=== PATIENT | male | born 1955 | race Caucasian/White ===

== ENCOUNTER 2017-07-30 12:52 | Emergency (ER) | payer OTHER, MEDICAID ==
[2010-04-27 07:32] VITALS: BMI 26.9
== END 2017-07-30 14:13 | disposition home or self-care (01) ==
LOC: D.ER 12:52
DX: H92.01 Otalgia, right ear (principal); H66.91 Otitis media, unspecified, right ear; Z76.0 Encounter for issue of repeat prescription; I10 Essential (primary) hypertension; F17.200 Nicotine dependence, unspecified, uncomplicated

== ENCOUNTER → 2017-10-25 11:55 | Outpatient (CLI) | payer OTHER, MEDICAID ==
[2010-04-27 07:32] VITALS: BMI 26.9
[2017-10-25 13:11] LABS: BILIRUBIN - DIRECT 0.12 mg/dL (0.00-0.30); BILIRUBIN - INDIRECT 0.25 mg/dL (0.00-1.00); BILIRUBIN - TOTAL 0.37 mg/dL (0.2-1.3); PROTEIN - SERUM 7.6 g/dL (6.4-8.2)
[2017-10-26 13:19] LABS: HEPATITIS C ANTIBODY >11.0 (0.0-0.9)
[2017-10-29 03:11] LABS: HCVGENO - HEP C QUANT 267000 IU/mL (()); HCVGENO - LOG 10 5.427 (())
== END | disposition home or self-care (01) ==
LOC: D.LAB 11:55
PROVIDERS: Family Medicine
DX: B18.2 Chronic viral hepatitis C (principal)

== ENCOUNTER 2018-08-30 05:49 | Emergency (ER) | payer OTHER, MEDICAID ==
[~2018-08-30] VITALS: Ht 180.3 cm; Wt 75.0 kg
[2018-08-30 05:52] VITALS: Ht 180.3 cm; Wt 75.0 kg
[2018-08-30] MEDS ORDERED: ADVAIR HFA [SP]12 GM INH (05:53)
[2018-08-30] MEDS ORDERED: ALBUTEROL SULF8.5 GM INH (05:53)
[2018-08-30 06:51] LABS: BASOPHILS 0.8 % (0-2); EOSINOPHILS 6.8 % (0-7); HEMATOCRIT 44.6 % (42.0-54.0); HEMOGLOBIN 14.9 g/dL (13.5-17.5); IMMATURE GRANULOCYTES 0.1 % (0-5); LYMPHOCYTES 36.1 % (15-50); MCH 30.8 pg (26.0-34.0); MCHC 33.4 g/dL (31.0-37.0); MCV 92.3 fL (80.0-100.0); NEUTROPHILS 46.2 % (40-80); PLATELET COUNT 263 10x3/uL (130-400); RBC 4.83 10x6/uL (4.20-6.10); RDW 13.3 % (11.5-14.5); WBC 8.9 10x3/uL (4.8-10.8)
[2018-08-30 07:11] LABS: ALBUMIN 3.7 g/dL (3.4-5.0); ALKALINE PHOSPHATASE 103 U/L (46-116); ALT (SGPT) 69 U/L (10-68); BILIRUBIN - TOTAL 0.24 mg/dL (0.2-1.3); CALC OSMOLALITY 280 mosm/kg (275-300); CALCIUM 8.8 mg/dL (8.5-10.1); CARBON DIOXIDE 30.7 mmol/L (21.0-32.0); CHLORIDE - SERUM 104 mmol/L (98-107); CREATININE - SERUM 1.2 mg/dL (0.6-1.3); GLUCOSE 91 mg/dL (74-106); POTASSIUM - SERUM 4.5 mmol/L (3.5-5.1); PROTEIN - SERUM 7.3 g/dL (6.4-8.2); SODIUM 140 mmol/L (136-145); UREA NITROGEN 17 mg/dL (7-18); eGFR NON AFRICAN AMERICAN 65 mL/min (90-120)
[2018-08-30 07:14] LABS: APTT 31.9 SECONDS (22.8-39.4); INR 0.99 (0.85-1.17); PROTIME 12.6 SECONDS (11.6-15.0)
[2018-08-30 07:16] LABS: D-DIMER-QUANTITATIVE 0.46 ug/mLFEU (0.20-0.54)
[2018-08-30 07:23] LABS: CKMB 1.7 U/L (0.0-3.6); CREATINE KINASE 164 UL (21-232); PRO BNP 104 pg/mL (0-125)
[2018-08-30 07:25] LABS: TROPONIN-I < 0.017 ng/mL (0.000-0.060)
[2018-08-30] MEDS ORDERED: VOLTAREN100 GM TOPICAL (07:38)
[2018-08-30] MEDS ORDERED: VOLTAREN75 MG PO (07:38)
[2018-08-30] MEDS ORDERED: KEFLEX500 MG PO (07:39)
[2018-08-30 08:45] VITALS: BP 139/78
== END 2018-08-30 08:46 | disposition home or self-care (01) ==
LOC: D.ER 05:49
PROVIDERS: Family Medicine
DX: R07.89 Other chest pain (principal); F17.200 Nicotine dependence, unspecified, uncomplicated; J43.9 Emphysema, unspecified; I10 Essential (primary) hypertension

== ENCOUNTER 2019-02-20 14:52 | Emergency (ER) | payer OTHER ==
[~2019-02-20] VITALS: Ht 180.3 cm; Wt 77.7 kg
[~2019-02-20 14:52] MED LIST: ADVAIR HFA [SP]12 GM INH; ALBUTEROL SULF8.5 GM INH; KEFLEX500 MG PO; VOLTAREN100 GM TOPICAL; VOLTAREN75 MG PO
[2019-02-20 14:58] VITALS: Ht 180.3 cm; Wt 77.7 kg
[2019-02-20 15:30] LABS: BASOPHILS 0.9 % (0-2); EOSINOPHILS 8.6 % (0-7); HEMATOCRIT 41.4 % (42.0-54.0); HEMOGLOBIN 14.4 g/dL (13.5-17.5); IMMATURE GRANULOCYTES 0.2 % (0-5); LYMPHOCYTES 23.6 % (15-50); MCH 30.8 pg (26.0-34.0); MCHC 34.8 g/dL (31.0-37.0); MCV 88.5 fL (80.0-100.0); MEAN PLATELET VOLUME 10.8 fL (7.4-10.4); MONOCYTES 6.5 % (2-11); NEUTROPHILS 60.2 % (40-80); PLATELET COUNT 248 10x3/uL (130-400); RBC 4.68 10x6/uL (4.20-6.10); RDW 12.9 % (11.5-14.5); WBC 10.6 10x3/uL (4.8-10.8)
[2019-02-20 15:44] LABS: APTT 28.3 SECONDS (22.8-39.4); INR 1.09 (0.85-1.17); PROTIME 13.6 SECONDS (11.6-15.0)
[2019-02-20 15:55] LABS: ALBUMIN 3.4 g/dL (3.4-5.0); ALKALINE PHOSPHATASE 105 U/L (46-116); ALT (SGPT) 101 U/L (10-68); BILIRUBIN - TOTAL 0.49 mg/dL (0.2-1.3); CALC OSMOLALITY 286 mosm/kg (275-300); CARBON DIOXIDE 26.7 mmol/L (21.0-32.0); CHLORIDE - SERUM 107 mmol/L (98-107); CREATININE - SERUM 1.1 mg/dL (0.6-1.3); POTASSIUM - SERUM 4.6 mmol/L (3.5-5.1); PROTEIN - SERUM 6.7 g/dL (6.4-8.2); SODIUM 142 mmol/L (136-145); UREA NITROGEN 16 mg/dL (7-18); eGFR NON AFRICAN AMERICAN 71 mL/min (90-120)
[2019-02-20 15:58] LABS: GLUCOSE 145 mg/dL (74-106)
[2019-02-20 16:11] LABS: CKMB 3.5 U/L (0.0-3.6); CREATINE KINASE 185 UL (21-232); PRO BNP 148 pg/mL (0-125)
[2019-02-20 16:12] LABS: TROPONIN-I < 0.017 ng/mL (0.000-0.060)
[2019-02-20] MEDS ORDERED: ATARAX 25 MG TA25 MG PO (16:47)
[2019-02-20] MEDS ORDERED: AMOXICILLIN500 M1 PO (16:47)
[2019-02-20] MEDS ORDERED: PREDNISONE20 MG PO (16:47)
[2019-02-20 18:49] VITALS: BP 143/81
== END 2019-02-20 18:50 | disposition home or self-care (01) ==
LOC: D.ER 14:52
PROVIDERS: Family Medicine
DX: J44.9 Chronic obstructive pulmonary disease, unspecified (principal); F41.9 Anxiety disorder, unspecified; I10 Essential (primary) hypertension; F17.200 Nicotine dependence, unspecified, uncomplicated

== ENCOUNTER 2019-04-03 13:33 | Inpatient (IN) | payer OTHER ==
[~2019-04-03] VITALS: Ht 180.3 cm; Wt 84.1 kg
[~2019-04-03 13:33] MED LIST changes: +AMOXICILLIN500 M1 PO; +ATARAX 25 MG TA25 MG PO; +PREDNISONE20 MG PO
[2019-04-03] MEDS ORDERED: TIROSINT100 MCG PO (13:37)
[2019-04-03 14:09] LABS: HEMATOCRIT 45.3 % (42.0-54.0); HEMOGLOBIN 15.2 g/dL (13.5-17.5); MCH 31.3 pg (26.0-34.0); MCHC 33.6 g/dL (31.0-37.0); MCV 93.2 fL (80.0-100.0); MEAN PLATELET VOLUME 10.5 fL (7.4-10.4); PLATELET COUNT 365 10x3/uL (130-400); RBC 4.86 10x6/uL (4.20-6.10); RDW 13.6 % (11.5-14.5)
[2019-04-03 14:13] LABS: CALC OSMOLALITY 277 mosm/kg (275-300); CALCIUM 8.9 mg/dL (8.5-10.1); CARBON DIOXIDE 28.5 mmol/L (21.0-32.0); CHLORIDE - SERUM 103 mmol/L (98-107); CREATININE - SERUM 1.2 mg/dL (0.6-1.3); GLUCOSE 114 mg/dL (74-106); POTASSIUM - SERUM 4.6 mmol/L (3.5-5.1); SODIUM 138 mmol/L (136-145); UREA NITROGEN 15 mg/dL (7-18); eGFR NON AFRICAN AMERICAN 65 mL/min (90-120)
[2019-04-03 14:23] LABS: APTT 31.5 SECONDS (22.8-39.4); INR 1.05 (0.85-1.17); PROTIME 13.2 SECONDS (11.6-15.0)
[2019-04-03 14:29] LABS: ALBUMIN 3.7 g/dL (3.4-5.0); ALKALINE PHOSPHATASE 92 U/L (46-116); ALT (SGPT) 42 U/L (10-68); BILIRUBIN - TOTAL 0.55 mg/dL (0.2-1.3); CREATINE KINASE 115 UL (21-232); PRO BNP 453 pg/mL (0-125); PROTEIN - SERUM 7.5 g/dL (6.4-8.2); TROPONIN-I < 0.017 ng/mL (0.000-0.060)
[2019-04-03 14:32] LABS: EOSINOPHILS 1 % (0-7); LYMPHOCYTES 8 % (15-50); MONOCYTES 2 % (2-11); NEUTROPHILS 88 % (40-80); PLATELET ESTIMATE NORMAL
--- NOTE | 2019-04-03 15:00 | NUR ---
PT OBSERVED LYING IN BED, RESPIRATIONS EVEN AND UNLABORED ON RA. CALL LIGHT IN REACH. PT RESTING WITH EYES CLOSED. WILL CONTINUE TO MONITOR.
[2019-04-03 15:25] VITALS: BP 152/85
[2019-04-03 18:23] VITALS: BP 152/85; BMI 25.8
--- NOTE | 2019-04-03 19:30 | NUR ---
AWAKE AND ALERT REQUESTING FOOD AND IT WAS PROVIDED SKIN WARM AND DRY BED LOW AND LOCKED WITH CALL LIGHT IN PLACE
[2019-04-03 20:00] VITALS: BP 153/83
[2019-04-03 21:14] LABS: APPEARANCE CLEAR (CLEAR); BILIRUBIN NEGATIVE (NEGATIVE); COLOR YELLOW (YELLOW); GLUCOSE NEGATIVE (NEGATIVE); KETONE NEGATIVE (NEGATIVE); NITRITE NEGATIVE (NEGATIVE); PROTEIN NEGATIVE (NEGATIVE); SPECIFIC GRAVITY 1.015 (1.005-1.020); UROBILINOGEN NORMAL (NORMAL)
[2019-04-04] VITALS: BP 150/80
[2019-04-04 04:00] VITALS: BP 156/80
[2019-04-04 05:47] LABS: BASOPHILS 0 % (0-2); EOSINOPHILS 0 % (0-7); HEMATOCRIT 45.1 % (42.0-54.0); HEMOGLOBIN 15.1 g/dL (13.5-17.5); IMMATURE GRANULOCYTES 0.4 % (0-5); LYMPHOCYTES 3.1 % (15-50); MCHC 33.5 g/dL (31.0-37.0); MCV 92.6 fL (80.0-100.0); MEAN PLATELET VOLUME 10.9 fL (7.4-10.4); MONOCYTES 0.5 % (2-11); PLATELET COUNT 376 10x3/uL (130-400); RBC 4.87 10x6/uL (4.20-6.10); RDW 13.8 % (11.5-14.5); WBC 21.5 10x3/uL (4.8-10.8)
[2019-04-04 05:56] LABS: ALBUMIN 3.4 g/dL (3.4-5.0); ANION GAP 12.5 mmol/L (8-16); BILIRUBIN - TOTAL 0.36 mg/dL (0.2-1.3); CALCIUM 8.8 mg/dL (8.5-10.1); CREATININE - SERUM 1.2 mg/dL (0.6-1.3); MAGNESIUM - SERUM 1.9 mg/dL (1.8-2.4); PHOSPHOROUS 2.2 mg/dL (2.5-4.9); POTASSIUM - SERUM 4.5 mmol/L (3.5-5.1); PROTEIN - SERUM 7.3 g/dL (6.4-8.2)
[2019-04-04 09:00] VITALS: BP 143/81
--- NOTE | 2019-04-04 10:31 | NUR ---
PATIENT IS SITTING UP IN BED. HE IS FULLY DRESSED AND TOOK A SHOWER THIS MORNING. HE IS SWEATING, AND SAYS THAT HE HAS BEEN VERY SHORT OF BREATH. DENIES ANY NEEDS AT THIS TIME.
[2019-04-04 13:01] VITALS: BP 159/80
[2019-04-04 13:46] VITALS: Ht 180.3 cm; Wt 84.1 kg
--- NOTE | 2019-04-04 19:05 | NUR ---
EVENING ROUNDS COMPLETE. PT SITTING UP ON SIDE OF BED. NO SIGNS OF DISTRESS. AAOX4. PT DENIES ANY PAIN OR NEEDS AT THIS TIME. CL IN REACH, BED IN LOWEST POSITION.
[2019-04-04 20:00] VITALS: BP 143/67
[2019-04-05] VITALS (7 sets, daily range): BP systolic 132–166; BP diastolic 64–90
[2019-04-05 04:34] LABS: HEMATOCRIT 40.3 % (42.0-54.0); HEMOGLOBIN 13.4 g/dL (13.5-17.5); MCH 30.6 pg (26.0-34.0); MCHC 33.3 g/dL (31.0-37.0); MEAN PLATELET VOLUME 10.8 fL (7.4-10.4); PLATELET COUNT 382 10x3/uL (130-400); RBC 4.38 10x6/uL (4.20-6.10); WBC 23.9 10x3/uL (4.8-10.8)
[2019-04-05 04:49] LABS: ANION GAP 13.1 mmol/L (8-16); CALCIUM 8.4 mg/dL (8.5-10.1); CREATININE - SERUM 1.3 mg/dL (0.6-1.3); POTASSIUM - SERUM 4.1 mmol/L (3.5-5.1)
[2019-04-05 05:08] LABS: PHOSPHOROUS 3.2 mg/dL (2.5-4.9)
[2019-04-05 05:42] LABS: LYMPHOCYTES 5 % (15-50); MONOCYTES 1 % (2-11); NEUTROPHILS 94 % (40-80); PLATELET ESTIMATE NORMAL
--- NOTE | 2019-04-05 17:24 | MORECARE ---
CASE MANAGEMENT DISCHARGE SUMMARY PATIENT: CALIXTO JAMES UNIT: [id number] ADM DATE: 04/03/19 AGE: 63 : 53 SEX: M ROOM/BED: D.2135 AUTHOR: EMELIA,DOC PHYSICIAN: REFERRING PHYSICIAN: MARKEL MARSHALL MD DATE OF SERVICE: 04/05/19 Discharge Plan Patient Name: CALIXTO JAMES Facility: [facility]:[place] : 1955 Planned Disposition: Home Anticipated Discharge Date: 04/06/19 Discharge Date: Expected LOS: 3 Initial Reviewer: [email or web address] Initial Review Date: 04/05/2019 Generated: 04/05/19 6:24 pm Comments DCP- Discharge Planning Updated by [id number]: Bryan James on 04/05/19 4:[address] Patient Name: CALIXTO JAMES Admission Status: ER Accout number: [id number] Admission Date: 04-03-2019 : 1955 Admission Diagnosis: Attending: JOANNA, Current LOS: 2 Anticipated DC Date: 04-06-2019 Planned Disposition: Home Primary Insurance: [place] Discharge Planning Comments: CM MET WITH PT IN ROOM TO DISCUSS DISCHARGE PLANNING AND NEEDS. PT REPORTS LIVING AT HOME INDEPENDENTLY WITH A FRIEND WHERE PT IS SLEEPING ON A COUCH.. PT HAS NEBULIZER FOR CRIME ANALYST AT [facility]. PT HAS NO OUTSIDE SERVICES ASSISTING IN THE HOME. CM DISCUSSED AVAILABILITY OF HOME HEALTH, REHAB SERVICES AND MEDICAL EQUIPMENT. PT DENIES DISCHARGE NEEDS, REPORTS A FRIEND WILL PICK HIM UP FOR DISCHARGE HOME. PT PLANS TO DISCHARGE TO FRIENDS HOUSE, HAS NO ANTICIPATED DISCHARGE NEEDS, FRIEND TO CRIME ANALYST AT DISCHARGE. CM TO FOLLOW AND ASSIST IF NEEDED. Account Engineer: Bryan James DCPIA - Discharge Planning Initial Assessment Updated by [id number]: Bryan James on 04/05/19 5:20 pm * Is the patient Alert and Oriented? Yes * How many steps to enter\exit or inside your home? NONE * PCP DR. JOHNSON * Pharmacy [facility] [place] * Preadmission Environment Home with Family * ADLs Independent * Equipment Nebulizer * Other Equipment [facility] - PATIENT HAS NOT YET PICKED UP NEBULIZER FROM [facility] * List name and contact numbers for known caregivers / representatives who currently or will assist patient after discharge: EMMA BRADLEY, GIRLFRIEND, * Verbal permission to speak to the caregivers and representatives has been obtained from the patient. N/A * Community resources currently utilized None * Please name any agencies selected above. NONE * Additional services required to return to the preadmission environment? No * Can the patient safely return to the preadmission environment? Yes * Has this patient been hospitalized within the prior 30 days at any hospital? No Coverage Notice Reviewer: [id number] Lolis James Notice Issued Date-Time: 04/05/2019 17:10 Notice Type: IM Discharge Notice Notice Delivered To: Patient Relationship to Patient: Index Editor Name: Delivery Method: HAND - Hand Delivered Yumi Days: Prior Verbal Notification: Recipient Understood Notice: Yes Recipient Signature: Yes Med Rec Note Co-signed by Attending: Coverage Notice Comment: Patient Name: CALIXTO JAMES Page [phone] at 1724 All edits/amendments must be made on the electronic document DICTATION DATE: 04/05/191723 PUNCH PRESS SETTER: MODE 04/05/191723 RPT#: [id number] DC DATE: STATUS: ADM IN [facility] [address] [place] [address] END OF REPORT
--- NOTE | 2019-04-05 18:06 | NUR ---
RESTS IN BED WITHOUT C/O VOICED. IV PATENT. CALL LIGHT IN REACH. WILL CONT. PLAN OF CARE.
[2019-04-06 04:00] VITALS: BP 142/78
[2019-04-06 06:48] LABS: HEMOGLOBIN 12.9 g/dL (13.5-17.5); MCH 30.6 pg (26.0-34.0); MCHC 32.3 g/dL (31.0-37.0); MCV 94.8 fL (80.0-100.0); MEAN PLATELET VOLUME 10.5 fL (7.4-10.4); PLATELET COUNT 403 10x3/uL (130-400); RBC 4.22 10x6/uL (4.20-6.10); RDW 14.5 % (11.5-14.5); WBC 23.8 10x3/uL (4.8-10.8)
[2019-04-06 06:56] LABS: ANION GAP 13.8 mmol/L (8-16); CALCIUM 8.7 mg/dL (8.5-10.1); CARBON DIOXIDE 27.1 mmol/L (21.0-32.0); CREATININE - SERUM 1.5 mg/dL (0.6-1.3); MAGNESIUM - SERUM 2.1 mg/dL (1.8-2.4)
[2019-04-06 06:57] LABS: PHOSPHOROUS 4.2 mg/dL (2.5-4.9); POTASSIUM - SERUM 4.9 mmol/L (3.5-5.1)
[2019-04-06 07:18] LABS: LYMPHOCYTES 8 % (15-50); MONOCYTES 7 % (2-11); NEUTROPHILS 85 % (40-80); PLATELET ESTIMATE NORMAL
[2019-04-06 08:10] LABS: IMMUNOGLOBULIN A 202 mg/dL (61-437); IMMUNOGLOBULIN G 718 mg/dL (700-1600)
[2019-04-06 08:47] VITALS: BP 158/92
[2019-04-06 12:06] VITALS: BP 144/78
--- NOTE | 2019-04-06 14:19 | NUR ---
I have reviewed this patient and I concur with the Shift Assessment completed by the Licensed Practical Nurse today this shift.
--- NOTE | 2019-04-06 14:56 | NUR ---
Nutrition follow-up: Diet: Regular PO intake 100% of meals Labs reviewed Wt: 185# +BM RDN following.
[2019-04-06 16:05] VITALS: BP 155/82
--- NOTE | 2019-04-06 19:20 | NUR ---
PT CARE ASSUMED. PT SITING UP ON THE SIDE OF THE BED EATING CRACKERS. RR EVEN AND UNLABORED ON RA. NO S/S OF DISTRESS NOTED AT THIS TIME. NO VOICED C/O OR CONCERS. CALL LIGHT IN REACH. WILL CTM.
[2019-04-06 20:00] VITALS: BP 150/78
[2019-04-07] VITALS (7 sets, daily range): BP systolic 148–190; BP diastolic 68–148
[2019-04-07 06:40] LABS: BASOPHILS 0.1 % (0-2); EOSINOPHILS 0 % (0-7); HEMATOCRIT 38.5 % (42.0-54.0); HEMOGLOBIN 12.6 g/dL (13.5-17.5); IMMATURE GRANULOCYTES 3.2 % (0-5); LYMPHOCYTES 5.4 % (15-50); MCH 30.6 pg (26.0-34.0); MCHC 32.7 g/dL (31.0-37.0); MCV 93.4 fL (80.0-100.0); MEAN PLATELET VOLUME 10.8 fL (7.4-10.4); MONOCYTES 6.5 % (2-11); NEUTROPHILS 84.8 % (40-80); PLATELET COUNT 392 10x3/uL (130-400); RBC 4.12 10x6/uL (4.20-6.10); RDW 14.5 % (11.5-14.5); WBC 18.6 10x3/uL (4.8-10.8)
--- NOTE | 2019-04-07 07:00 | NUR ---
REPORT RECEIVED. HE IS RESTING WITH EASE. RESP EVEN WITHOUT LABOR. LEFT F/A SALINE LOCK INTACT. CL IN REACH BED IN LOWEST POSITION AND LOCKED. CAREPLAN REVIEW DONE WITH SAFETY PRECAUTIONS IN PLACE
[2019-04-07 07:13] LABS: CALC OSMOLALITY 290 mosm/kg (275-300); CALCIUM 8.6 mg/dL (8.5-10.1); CARBON DIOXIDE 24.5 mmol/L (21.0-32.0); CHLORIDE - SERUM 107 mmol/L (98-107); GLUCOSE 174 mg/dL (74-106); MAGNESIUM - SERUM 2.2 mg/dL (1.8-2.4); PHOSPHOROUS 3.7 mg/dL (2.5-4.9); POTASSIUM - SERUM 4.9 mmol/L (3.5-5.1); SODIUM 141 mmol/L (136-145); UREA NITROGEN 28 mg/dL (7-18); eGFR NON AFRICAN AMERICAN 80 mL/min (90-120)
--- NOTE | 2019-04-07 19:30 | NUR ---
PT CARE ASSUMED. PT WALKING AROUND ROOM. RR EVEN AND UNLABORED ON RA. NO S/S OF DISTRESS OBSERVED AT THIS TIME. PT DENIES NEEDS. WILL CTM.
[2019-04-08 03:00] VITALS: BP 186/98
--- NOTE | 2019-04-08 03:00 | NUR ---
PT HAS REMAINED AWAKE ALL NIGHT AFTER PM MEDICATION. STATES HE IS EXCITED ABOUT HIS NEW HOUSE. MANUAL BP 186/98. NO S/S OF DISTRESS NOTED. WILL CTM.
[2019-04-08 04:00] VITALS: BP 197/109
--- NOTE | 2019-04-08 05:40 | NUR ---
PT STATES THAT HIS HIGH BLOOD PRESSURE TONIGHT IS "PROBABLY DUE TO HIM FOOLING WITH HIMSELF." DENIES TAKING ANY MEDICATION OTHER THAN WHAT THIS NURSE HAS ADMINISTERED PER ORDER. DENIES ANY OTHER NEEDS AT THIS TIME.
[2019-04-08 06:03] LABS: HEMOGLOBIN 14.4 g/dL (13.5-17.5); MCH 30.5 pg (26.0-34.0); MCHC 32.7 g/dL (31.0-37.0); MCV 93.2 fL (80.0-100.0); MEAN PLATELET VOLUME 10.8 fL (7.4-10.4); PLATELET COUNT 424 10x3/uL (130-400); RBC 4.72 10x6/uL (4.20-6.10); RDW 14.3 % (11.5-14.5); WBC 24.4 10x3/uL (4.8-10.8)
[2019-04-08 06:16] LABS: ANION GAP 13.7 mmol/L (8-16); CARBON DIOXIDE 27.1 mmol/L (21.0-32.0); CREATININE - SERUM 1.2 mg/dL (0.6-1.3); MAGNESIUM - SERUM 2.2 mg/dL (1.8-2.4)
[2019-04-08 06:24] LABS: PHOSPHOROUS 2.7 mg/dL (2.5-4.9); POTASSIUM - SERUM 3.8 mmol/L (3.5-5.1)
[2019-04-08 06:59] LABS: LYMPHOCYTES 11 % (15-50); MONOCYTES 9 % (2-11); NEUTROPHILS 76 % (40-80); PLATELET ESTIMATE NORMAL
[2019-04-08 08:00] VITALS: BP 195/95
[2019-04-08] MEDS ORDERED: PREDNISONE10 MG PO (10:35)
[2019-04-08] MEDS ORDERED: DALIRESP500 MCG PO (10:36)
[2019-04-08] MEDS ORDERED: TESSALON PERLE100 MG PO (10:36)
[2019-04-08] MEDS ORDERED: MUCINEX DM ER1 EAC1 PO (10:36)
[2019-04-08] MEDS ORDERED: DOXYCYCLINE HY100 M2 PO (10:39)
[2019-04-08] MEDS ORDERED: LEVAQUIN750 MG PO (10:39)
[2019-04-08] MEDS ORDERED: IPRAT-ALBUT 0.5-3 ML INH (10:40)
--- NOTE | 2019-04-08 11:01 | MORECARE ---
CASE MANAGEMENT DISCHARGE SUMMARY PATIENT: CALIXTO JAMES UNIT: [id number] ADM DATE: 04/03/19 AGE: 63 : 54 SEX: M ROOM/BED: D.2138 AUTHOR: EMELIA,DOC PHYSICIAN: REFERRING PHYSICIAN: MARKEL MARSHALL MD DATE OF SERVICE: 04/08/19 Discharge Plan Patient Name: CALIXTO JAMES Facility: [facility]:[place] : 1955 Planned Disposition: Home Anticipated Discharge Date: 04/06/19 Discharge Date: Expected LOS: 3 Initial Reviewer: [id number] Initial Review Date: 04/05/2019 Generated: 04/08/19 12:01 pm Comments DCP- Discharge Planning Updated by [id number]: Bonita Chandra on 04/08/19 9:[address] Patient Name: CALIXTO JAMES Admission Status: ER Accout number: [id number] Admission Date: 04-03-2019 : 1955 Admission Diagnosis: Attending: JOANNA, Current LOS: 5 Anticipated DC Date: 04-06-2019 Planned Disposition: Home Primary Insurance: NOVASYSMCR Discharge Planning Comments: DC TO HOME TODAY. IMM SIGNED. STATES IS TO INSTRUCTOR PAINTING NEBULIZER AT [facility], ALREADY HAS THE ORDER. Case Briefer: Bonita Chandra DCP- Discharge Planning Updated by [id number]: Bryan James on 04/05/19 5:[address] Patient Name: CALIXTO JAMES Admission Status: ER Accout number: [id number] Admission Date: 04-03-2019 : 1955 Admission Diagnosis: Attending: JOANNA, Current LOS: 2 Anticipated DC Date: 04-06-2019 Planned Disposition: Home Primary Insurance: NOVASYSMCR Discharge Planning Comments: CM MET WITH PT IN ROOM TO DISCUSS DISCHARGE PLANNING AND NEEDS. PT REPORTS LIVING AT HOME INDEPENDENTLY WITH A FRIEND WHERE PT IS SLEEPING ON A COUCH.. PT HAS NEBULIZER FOR INSTRUCTOR PAINTING AT [facility]. PT HAS NO OUTSIDE SERVICES ASSISTING IN THE HOME. CM DISCUSSED AVAILABILITY OF HOME HEALTH, REHAB SERVICES AND MEDICAL EQUIPMENT. PT DENIES DISCHARGE NEEDS, REPORTS A FRIEND WILL PICK HIM UP FOR DISCHARGE HOME. PT PLANS TO DISCHARGE TO FRIENDS HOUSE, HAS NO ANTICIPATED DISCHARGE NEEDS, FRIEND TO INSTRUCTOR PAINTING AT DISCHARGE. CM TO FOLLOW AND ASSIST IF NEEDED. Case Briefer: Bryan Erika DCPIA - Discharge Planning Initial Assessment Updated by [id number]: Bryan James on 04/05/19 5:20 pm * Is the patient Alert and Oriented? Yes * How many steps to enter\exit or inside your home? NONE * PCP DR. JOHNSON * [facility] * Preadmission Environment Home with Family * ADLs Independent * Equipment Nebulizer * Other Equipment [facility] - PATIENT HAS NOT YET PICKED UP NEBULIZER FROM [facility] * List name and contact numbers for known caregivers / representatives who currently or will assist patient after discharge: EMMA BRADLEY, GIRLFRIEND, * Verbal permission to speak to the caregivers and representatives has been obtained from the patient. N/A * Community resources currently utilized None * Please name any agencies selected above. NONE * Additional services required to return to the preadmission environment? No * Can the patient safely return to the preadmission environment? Yes * Has this patient been hospitalized within the prior 30 days at any hospital? No Coverage Notice Reviewer: [email or web address] - Bryan Erika Notice Issued Date-Time: 04/05/2019 17:10 Notice Type: IM Discharge Notice Notice Delivered To: Patient Relationship to Patient: Editor Farm Journal Name: Delivery Method: HAND - Hand Delivered Yumi Days: Prior Verbal Notification: Recipient Understood Notice: Yes Recipient Signature: Yes Med Rec Note Co-signed by Attending: Coverage Notice Comment: Reviewer: [id number] - Bonita Chandra Notice Issued Date-Time: 04/08/2019 10:56 Notice Type: IM Discharge Notice Notice Delivered To: Patient Relationship to Patient: Editor Farm Journal Name: Delivery Method: HAND - Hand Delivered Yumi Days: Prior Verbal Notification: Recipient Understood Notice: Yes Recipient Signature: Yes Med Rec Note Co-signed by Attending: Coverage Notice Comment: Last DP export: 04/05/19 5:24 Patient Name: CALIXTO JAMES Page [id number] Electronically Signed by [email or web address] on 04/08/19 at 1101 All edits/amendments must be made on the electronic document DICTATION DATE: 04/08/19 1101 TRUCK SWITCHER: MODE 04/08/19 110 RPT#: [id number] DC DATE: STATUS: ADM IN [facility] [address] [place] [address] END OF REPORT
--- NOTE | 2019-04-08 15:38 | MORECARE ---
CASE MANAGEMENT DISCHARGE SUMMARY PATIENT: CALIXTO JAMES UNIT: [id number] ADM DATE: 04/03/19 AGE: 63 : 53 SEX: M ROOM/BED: D.2130 AUTHOR: EMELIA,DOC PHYSICIAN: REFERRING PHYSICIAN: MARKEL MARSHALL MD DATE OF SERVICE: 04/08/19 Discharge Plan Patient Name: CALIXTO JAMES Facility: [facility]:[place] : 1955 Planned Disposition: Home Anticipated Discharge Date: 04/06/19 Discharge Date: 04/08/2019 Expected LOS: 3 Initial Reviewer: [email or web address] Initial Review Date: 04/05/2019 Generated: 04/08/19 4:38 pm Comments DCP- Discharge Planning Updated by [email or web address]: Bonita Chandra on 04/08/19 9:[address] Patient Name: CALIXTO JAMES Admission Status: ER Accout number: [id number] Admission Date: 04-03-2019 : 1955 Admission Diagnosis: Attending: JOANNA, Current LOS: 5 Anticipated DC Date: 04-06-2019 Planned Disposition: Home Primary Insurance: NOVASYSMCR Discharge Planning Comments: DC TO HOME TODAY. IMM SIGNED. STATES IS TO REGIONAL EXTENSION SERVICE SPECIALIST NEBULIZER AT [facility], ALREADY HAS THE ORDER. Billing Specialist: Bonita Chandra DCP- Discharge Planning Updated by [id number]: Bryan James on 04/05/19 5:[address] Patient Name: CALIXTO JAMES Admission Status: ER Accout number: [id number] Admission Date: 04-03-2019 : 1955 Admission Diagnosis: Attending: JOANNA, Current LOS: 2 Anticipated DC Date: 04-06-2019 Planned Disposition: Home Primary Insurance: NOVASYSMCR Discharge Planning Comments: CM MET WITH PT IN ROOM TO DISCUSS DISCHARGE PLANNING AND NEEDS. PT REPORTS LIVING AT HOME INDEPENDENTLY WITH A FRIEND WHERE PT IS SLEEPING ON A COUCH.. PT HAS NEBULIZER FOR REGIONAL EXTENSION SERVICE SPECIALIST AT [facility]. PT HAS NO OUTSIDE SERVICES ASSISTING IN THE HOME. CM DISCUSSED AVAILABILITY OF HOME HEALTH, REHAB SERVICES AND MEDICAL EQUIPMENT. PT DENIES DISCHARGE NEEDS, REPORTS A FRIEND WILL PICK HIM UP FOR DISCHARGE HOME. PT PLANS TO DISCHARGE TO FRIENDS HOUSE, HAS NO ANTICIPATED DISCHARGE NEEDS, FRIEND TO REGIONAL EXTENSION SERVICE SPECIALIST AT DISCHARGE. CM TO FOLLOW AND ASSIST IF NEEDED. Billing Specialist: Bryan James DCPIA - Discharge Planning Initial Assessment Updated by [id number]: Bryan James on 04/05/19 5:20 pm * Is the patient Alert and Oriented? Yes * How many steps to enter\exit or inside your home? NONE * PCP DR. JOHNSON * Pharmacy [facility] [place] * Preadmission Environment Home with Family * ADLs Independent * Equipment Nebulizer * Other Equipment [facility] - PATIENT HAS NOT YET PICKED UP NEBULIZER FROM [facility] * List name and contact numbers for known caregivers / representatives who currently or will assist patient after discharge: EMMA BRADLEY, GIRLFRIEND, * Verbal permission to speak to the caregivers and representatives has been obtained from the patient. N/A * Community resources currently utilized None * Please name any agencies selected above. NONE * Additional services required to return to the preadmission environment? No * Can the patient safely return to the preadmission environment? Yes * Has this patient been hospitalized within the prior 30 days at any hospital? No Coverage Notice Reviewer: [id number] - Bryan James Notice Issued Date-Time: 04/05/2019 17:10 Notice Type: IM Discharge Notice Notice Delivered To: Patient Relationship to Patient: Audit Control Clerk Name: Delivery Method: HAND - Hand Delivered Yumi Days: Prior Verbal Notification: Recipient Understood Notice: Yes Recipient Signature: Yes Med Rec Note Co-signed by Attending: Coverage Notice Comment: Reviewer: [id number] - Bontia Chandra Notice Issued Date-Time: 04/08/2019 10:56 Notice Type: IM Discharge Notice Notice Delivered To: Patient Relationship to Patient: Audit Control Clerk Name: Delivery Method: HAND - Hand Delivered Yumi Days: Prior Verbal Notification: Recipient Understood Notice: Yes Recipient Signature: Yes Med Rec Note Co-signed by Attending: Coverage Notice Comment: Last DP export: 04/08/19 10:01 a Patient Name: CALIXTO JAMES Page [id number] at 1538 All edits/amendments must be made on the electronic document DICTATION DATE: 04/08/191537 OCCUPATIONAL WORK EXPERIENCE TEACHER: MODE 04/08/191537 RPT#: [id number] DC DATE:04/08/19 STATUS: DIS IN [facility] [address] [place] [address] END OF REPORT
[2019-04-08 18:07] LABS: IMMUNOGLOBULIN E 39 IU/mL (6-495)
[2019-04-09 12:09] LABS: IGG SUBCLASS 1 524 mg/dL (248-810); IGG SUBCLASS 2 93 mg/dL (130-555); IGG SUBCLASS 3 49 mg/dL (15-102); IGG SUBCLASS 4 12 mg/dL (2-96); IGGS - IGG SERUM 741 mg/dL (700-1600)
== END 2019-04-08 11:45 | disposition home or self-care (01) | DRG 190 ==
LOC: D.ER 13:33 → D.M2 16:44
PROVIDERS: Family Medicine; Internal Medicine Pulmonary Disease; ADMIT Family Medicine; ATTEND Family Medicine
DX: J44.0 Chronic obstructive pulmonary disease with (acute) lower respiratory infection (principal); J18.9 Pneumonia, unspecified organism; F17.213 Nicotine dependence, cigarettes, with withdrawal; J20.9 Acute bronchitis, unspecified; J44.1 Chronic obstructive pulmonary disease with (acute) exacerbation; E03.9 Hypothyroidism, unspecified; B19.20 Unspecified viral hepatitis C without hepatic coma

== ENCOUNTER → 2019-11-05 12:38 | Outpatient (CLI) | payer OTHER ==
[2019-04-04 13:46] VITALS: BMI 25.8
[~2019-11-05 12:38] MED LIST changes: +DALIRESP500 MCG PO; +DOXYCYCLINE HY100 M2 PO; +IPRAT-ALBUT 0.5-3 ML INH; +LEVAQUIN750 MG PO; +MUCINEX DM ER1 EAC1 PO; +PREDNISONE10 MG PO; +TESSALON PERLE100 MG PO; +TIROSINT100 MCG PO
== END | disposition home or self-care (01) ==
LOC: D.MRI 12:38
PROVIDERS: ATTEND Clinical Nurse Specialist Family Health
DX: M25.561 Pain in right knee (principal)

== ENCOUNTER 2020-08-20 17:46 | Emergency (ER) | payer OTHER ==
[~2020-08-20] VITALS: Ht 180.3 cm; Wt 77.3 kg
[2020-08-20 17:58] VITALS: Ht 180.3 cm; Wt 77.3 kg
[2020-08-20 19:07] LABS: BILIRUBIN NEGATIVE (NEGATIVE); KETONE NEGATIVE (NEGATIVE); NITRITE NEGATIVE (NEGATIVE); UROBILINOGEN NORMAL mg/dL (< 2)
[2020-08-20 20:21] LABS: BASOPHILS 0.5 % (0-2); HEMATOCRIT 50.5 % (42.0-54.0); HEMOGLOBIN 17.5 g/dL (13.5-17.5); IMMATURE GRANULOCYTES 0.5 % (0-5); LYMPHOCYTE ABS# 3.38 10x3/uL (1.32-3.57); LYMPHOCYTES 21.8 % (15-50); MCHC 34.7 g/dL (31.0-37.0); MCV 92.3 fL (80.0-100.0); MEAN PLATELET VOLUME 10.4 fL (7.4-10.4); MONOCYTES 4.6 % (2-11); NEUTROPHIL ABS# 10.94 10x3/uL (1.78-5.38); NEUTROPHILS 70.6 % (40-80); RBC 5.47 10x6/uL (4.20-6.10); RDW 14.2 % (11.5-14.5); WBC 15.5 10x3/uL (4.8-10.8)
[2020-08-20 20:32] LABS: ANION GAP 13.4 mmol/L (8-16); CALCIUM 8.9 mg/dL (8.5-10.1); CARBON DIOXIDE 29.4 mmol/L (21.0-32.0); CREATININE - SERUM 1.4 mg/dL (0.6-1.3); POTASSIUM - SERUM 3.8 mmol/L (3.5-5.1)
[2020-08-20 20:40] LABS: ALBUMIN 4.1 g/dL (3.4-5.0); BILIRUBIN - TOTAL 0.26 mg/dL (0.2-1.3); TROPONIN-I 0.021 ng/mL (0.000-0.060)
[2020-08-20 20:52] LABS: PLATELET COUNT 237 10x3/uL (130-400)
[2020-08-20 21:24] LABS: ERYTHROCYTE SEDIMENTATION RATE 2 mm/hr (0-20)
[2020-08-20] MEDS ORDERED: CLEOCIN HCL300 MG PO (22:29)
[2020-08-20 23:47] VITALS: BP 167/89
== END 2020-08-20 23:47 | disposition home or self-care (01) ==
LOC: D.ER 17:46
PROVIDERS: Family Medicine
DX: F15.10 Other stimulant abuse, uncomplicated (principal); R11.2 Nausea with vomiting, unspecified; L02.91 Cutaneous abscess, unspecified; N28.1 Cyst of kidney, acquired; J44.9 Chronic obstructive pulmonary disease, unspecified; Z72.0 Tobacco use